=== PATIENT | male | born 2000 | race Caucasian/White ===

== ENCOUNTER 2021-08-25 16:39 | Emergency (ER) | payer BC, SELFPAY ==
--- NOTE | 2021-08-25 16:43 | ED.BACK ---
HPI - Back Pain/Injury General Chief Complaint: Back Pain/Injury Stated Complaint: lower back pain Time Seen by Provider: 08/25/21 16:43 Source: patient Mode of arrival: ambulatory Limitations: no limitations History of Present Illness HPI Narrative: Mr. Redd is a 21 year old male patient presenting to the clinic today with c/o right posterior hip pain that radiates down his right for a couple months but has worsened the last few days. He reports the pain as sharp and burning and radiating into his right knee and thigh. No known injury to his back or hip. Standing alleviates the pain some. He has tried taking some Aleve for this and it has not been helping. He denies any saddle anesthesia or loss of bowel or bladder. Related Data Home Medications Medication Instructions Recorded Confirmed fluticasone 500 mcg-salmeterol 50 1 ea inhalation BID 08/25/21 08/25/21 mcg/dose blistr powdr for inhalation (Advair Diskus) Allergies Allergy/AdvReac Type Severity Reaction Status Date / Time nut - unspecified Allergy Severe Anaphylactic Verified 08/25/21 17:02 Shock No Known Drug Allergies Allergy Unknown Verified 08/25/21 17:02 Protein Milk AdvReac Unknown Nausea and Uncoded 08/25/21 17:02 Vomiting Review of Systems Review of Systems: Pertinent positives per HPI. Patient denies any fever, chills, rash, headache, visual changes, dizziness, cough, runny nose, sore throat, shortness of breath, chest pain, palpitations, nausea, vomiting, diarrhea, constipation, abdominal pain, or any urinary issues. PMFSH Comments At the time of my signature, I reviewed and agree with the nursing past medical, surgical, social, and family history. There is no relevant family history pertinent to the patient complaint. Exam Narrative: General: Well-developed, well nourished, in no apparent distress Head: Normocephalic, atraumatic. Cardio: Regular rate and rhythm, s1 and s2 normal, no murmur appreciated. Resp: Clear to auscultation bilaterally, no rhonchi, rales, wheezing or rubs. Musculoskeletal: No deformity,tender to palpation over the right SI joint with radiation of pain down the buttock, thigh, and knee. Grossly normal range of motion, negative for foot drop, bilateral lower extremities strong and equal, patellar reflexes 2+ bilaterally, peripheral pulse strong, no edema, no cyanosis, normal gait and station Course Course Emergency Course: Portions of this record may have been created with voice recognition software. Level of Care: Express Care Visit Vital Signs Vital signs: Vital Signs Temperature 36.6 C 08/25/21 16:57 Pulse Rate 81 08/25/21 16:57 Respiratory Rate 16 08/25/21 16:57 Blood Pressure 130/87 08/25/21 16:57 Pulse Oximetry 98 08/25/21 16:57 Oxygen Delivery Room Air 08/25/21 16:57 Temperature 36.6 C 08/25/21 16:57 Pulse Rate 81 08/25/21 16:57 Respiratory Rate 16 08/25/21 16:57 Blood Pressure 130/87 08/25/21 16:57 Pulse Oximetry 98 08/25/21 16:57 Oxygen Delivery Room Air 08/25/21 16:57 Vital signs reviewed MDM - Back Pain/Injury MDM Narrative Medical decision making narrative: At the time of visit patient is resting comfortably on the exam table. I suspect the patient has right-sided SI joint dysfunction with sciatica to the right lower extremity. Toradol 60 mg IM given in the clinic today and will follow-up with prednisone starting tomorrow taper dose. Supportive measures were discussed with the patient he voiced understanding of discharge instructions and agrees to the treatment plan. Differential Diagnosis Differential diagnosis: Likely lumbar radiculopathy, sciatica, strain of lumbar region and other (Herniated disc, SI joint dysfunction) Discharge Plan Discharge Clinical Impression: Sciatica of right side without back pain, SI (sacroiliac) joint dysfunction Patient Disposition: Home, Self-Care Condition: Stable Instructions: Antibiotic
[2021-08-25 16:57] VITALS: BP 130/87; PULSE 81; RESP 16; TEMP 36.6; O2SAT 98
[2021-08-25] MEDS: KETOROLAC (*BKC) 60 MG/2 ML VIAL IM (17:09)
== END 2021-08-25 17:39 | disposition home or self-care (01) ==
PROVIDERS: Emergency Provider Nurse Practitioner Family
DX: M54.41 Lumbago with sciatica, right side (principal); M53.3 Sacrococcygeal disorders, not elsewhere classified; J45.909 Unspecified asthma, uncomplicated
CPT/HCPCS: 96372; 99213; G0463; J1885